=== PATIENT | female | born 1965 | race Caucasian/White ===

== ENCOUNTER → 2017-09-19 16:50 | Outpatient (CLI) | payer BC, SELFPAY ==
[2017-09-19 18:05] LABS: Free T3 2.1 pg/mL (2.18-3.98); T4 Total, Thyroxin 8.3 ug/dL (4.8-13.9); Thyroid Stim Hormone (TSH) 2.34 uIU/mL (0.358-3.74)
== END ==
PROVIDERS: Family Provider Family Medicine; PCP Family Medicine; Visit Provider Family Medicine
DX: E03.9 Hypothyroidism, unspecified (principal)
CPT/HCPCS: 36415; 84436; 84443; 84481

== ENCOUNTER → 2018-02-24 09:56 | Outpatient (CLI) | payer BC, SELFPAY ==
[2018-02-24 13:00] LABS: Anion Gap 9 (5-15); BUN 21 mg/dL (7-18); BUN/Creat Ratio 23.3 RATIO (10-20); Calcium,Total 8.5 mg/dL (8.5-10.1); Chloride 106 mmol/L (98-107); Cholesterol 173 mg/dL (200); EST Glomerular Filtration Rate 70 mL/min (>60); Est Glom Filt Rate - Afr Amer 84 mL/min (>60); Glucose 108 mg/dL (74-106); High Density Lipoprotein 68 mg/dL; Potassium 4.5 mmol/L (3.5-5.1); Sodium Level 140 mmol/L (136-145); Triglycerides 102 mg/dL; Very Low Density Lipoprotein 20 mg/dL (5-40); Vitamin D,25 Hydroxy 46.7 ng/mL (29.95-100.01)
== END ==
PROVIDERS: Family Provider Family Medicine; PCP Family Medicine; Visit Provider Family Medicine
DX: Z00.00 Encounter for general adult medical examination without abnormal findings (principal)
CPT/HCPCS: 36415; 80048; 80061; 82306; 84443

== ENCOUNTER → 2018-03-11 07:17 | Outpatient (CLI) | payer BC, SELFPAY | PROVIDERS: Family Provider Family Medicine; PCP Family Medicine; Visit Provider Family Medicine | DX: Z12.31 Encounter for screening mammogram for malignant neoplasm of breast (principal) | CPT/HCPCS: 77063; 77067 ==

== ENCOUNTER → 2018-08-27 08:23 | Outpatient (CLI) | payer BC, SELFPAY ==
[2018-08-27 10:53] LABS: Anion Gap 6 (5-15); BUN 16 mg/dL (7-18); BUN/Creat Ratio 19.6 RATIO (10-20); Calcium,Total 8.9 mg/dL (8.5-10.1); Chloride 107 mmol/L (98-107); Creatinine, Serum 0.82 mg/dL (0.55-1.02); EST Glomerular Filtration Rate 78 mL/min (>60); Est Glom Filt Rate - Afr Amer 94 mL/min (>60); Free T3 2.4 pg/mL (2.18-3.98); Glucose 105 mg/dL (74-106); Potassium 4.1 mmol/L (3.5-5.1); Sodium Level 139 mmol/L (136-145); T4 Total, Thyroxin 10.4 ug/dL (4.8-13.9); Thyroid Stim Hormone (TSH) 2.09 uIU/mL (0.358-3.74)
== END ==
PROVIDERS: Family Provider Family Medicine; PCP Family Medicine; Referring Provider Family Medicine; Visit Provider Family Medicine
DX: E03.9 Hypothyroidism, unspecified (principal); F32.9 Major depressive disorder, single episode, unspecified
CPT/HCPCS: 36415; 80048; 84436; 84443; 84481

== ENCOUNTER → 2019-02-28 07:01 | Outpatient (CLI) | payer BC, SELFPAY ==
[2019-02-28 08:13] LABS: Anion Gap 7 (5-15); BUN 16 mg/dL (7-18); BUN/Creat Ratio 19.4 RATIO (10-20); Calcium,Total 8.5 mg/dL (8.5-10.1); Chloride 107 mmol/L (98-107); Cholesterol 186 mg/dL (200); Creatinine, Serum 0.82 mg/dL (0.55-1.02); EST Glomerular Filtration Rate 77 mL/min (>60); Est Glom Filt Rate - Afr Amer 93 mL/min (>60); Glucose 92 mg/dL (74-106); High Density Lipoprotein 68 mg/dL; Potassium 3.9 mmol/L (3.5-5.1); Sodium Level 140 mmol/L (136-145); Thyroid Stim Hormone (TSH) 3.22 uIU/mL (0.358-3.74); Triglycerides 88 mg/dL; Very Low Density Lipoprotein 18 mg/dL (5-40)
[2019-02-28 13:46] LABS: Vitamin D,25 Hydroxy 47.7 ng/mL (29.95-100.01)
== END ==
PROVIDERS: Family Provider Family Medicine; PCP Family Medicine; Referring Provider Family Medicine; Visit Provider Family Medicine
DX: Z00.00 Encounter for general adult medical examination without abnormal findings (principal); E55.9 Vitamin D deficiency, unspecified
CPT/HCPCS: 36415; 80048; 80061; 82306; 84443

== ENCOUNTER → 2019-03-12 07:35 | Outpatient (CLI) | payer BC, SELFPAY ==
--- NOTE | 2019-03-12 07:40 | BI_ITS ---
MAMMOGRAPHY - BILATERAL SCREENING REASON FOR EXAM: Female, 53 years old. Routine annual screening examination. PERTINENT HISTORY: Non-contributory. TECHNIQUE: Digital bilateral breast surjit (3D mammographic acquisition) in the CC and MLO projections. 2-D mediolateral oblique (MLO) and craniocaudad (CC) views of both breasts were obtained. CAD: Full Field Digital Mammography with Computer Added Detection was performed. COMPARISON: Comparison is made with prior study dated March 11, 2018 and September 14, 2014. FINDINGS: Breast Composition: There are scattered areas of fibroglandular density. There are no dominant masses or suspicious calcifications. Stable small bilateral axillary lymph nodes. No other significant abnormalities are identified. There has been no significant change since the prior study. BI/SCREEN MAMM (CAD) W/SURJIT BILAT IMPRESSION: Stable bilateral screening mammogram. Yearly follow-up mammogram recommended. (A) ASSESSMENT CATEGORY: BIRADS Category 2: Benign. A letter regarding these results will be sent to the patient by the facility within 30 days. Approximately 10% of breast cancers are not detected by mammography. A normal mammogram should not delay biopsy of a clinically suspicious abnormality. [id number] Electronically Signed: Adalberto See, at 9:09 EDT , Service support ,
== END ==
PROVIDERS: Family Provider Family Medicine; PCP Family Medicine; Referring Provider Family Medicine; Visit Provider Family Medicine
DX: Z12.31 Encounter for screening mammogram for malignant neoplasm of breast (principal)
CPT/HCPCS: 77063; 77067

== ENCOUNTER → 2019-08-27 09:39 | Outpatient (CLI) | payer BC, SELFPAY ==
[2019-08-27 12:46] LABS: Free T3 2.4 pg/mL (2.18-3.98); T4 Total, Thyroxin 9.3 ug/dL (4.8-13.9); Thyroid Stim Hormone (TSH) 1.27 uIU/mL (0.358-3.74)
== END ==
PROVIDERS: PCP Family Medicine; Referring Provider Family Medicine; Visit Provider Family Medicine
DX: E03.9 Hypothyroidism, unspecified (principal)
CPT/HCPCS: 36415; 84436; 84443; 84481

== ENCOUNTER → 2020-03-21 16:38 | Outpatient (CLI) | payer BC, SELFPAY ==
[2020-03-21 18:35] LABS: Anion Gap 4 (5-15); BUN 11 mg/dL (7-18); Calcium,Total 8.2 mg/dL (8.5-10.1); Chloride 110 mmol/L (98-107); Cholesterol 154 mg/dL (200); Creatinine, Serum 0.73 mg/dL (0.55-1.02); EST Glomerular Filtration Rate 88 mL/min (>60); Est Glom Filt Rate - Afr Amer 106 mL/min (>60); Glucose 88 mg/dL (74-106); High Density Lipoprotein 65 mg/dL; Potassium 3.7 mmol/L (3.5-5.1); Sodium Level 140 mmol/L (136-145); Thyroid Stim Hormone (TSH) 1.07 uIU/mL (0.358-3.74); Triglycerides 55 mg/dL; Very Low Density Lipoprotein 11 mg/dL (5-40)
== END ==
PROVIDERS: PCP Family Medicine; Referring Provider Family Medicine; Visit Provider Family Medicine
DX: Z00.00 Encounter for general adult medical examination without abnormal findings (principal); E03.9 Hypothyroidism, unspecified
CPT/HCPCS: 36415; 80048; 80061; 84443

== ENCOUNTER → 2020-04-12 07:03 | Outpatient (CLI) | payer BC, SELFPAY ==
--- NOTE | 2020-04-12 07:04 | BI_ITS ---
MAMMOGRAPHY - BILATERAL SCREENING REASON FOR EXAM: Female, 54 years old. Routine annual screening examination. PERTINENT HISTORY: Non-contributory. TECHNIQUE: Digital bilateral breast surjit (3D mammographic acquisition) in the CC and MLO projections. 2-D mediolateral oblique (MLO) and craniocaudad (CC) views of both breasts were obtained. CAD: Full Field Digital Mammography with Computer Added Detection was performed. COMPARISON: Comparison is made with prior study dated 03/12/2019 and 03/11/2018. FINDINGS: Breast Composition: There are scattered areas of fibroglandular density. There are no dominant masses or suspicious calcifications. No other significant abnormalities are identified. There has been no significant change since the prior study. BI/SCREEN MAMM (CAD) W/SURJIT BILAT IMPRESSION: Stable bilateral screening mammogram. Yearly follow-up mammogram recommended. (A) ASSESSMENT CATEGORY: BIRADS Category 1: Negative. A letter regarding these results will be sent to the patient by the facility within 30 days. Approximately 10% of breast cancers are not detected by mammography. A normal mammogram should not delay biopsy of a clinically suspicious abnormality. [id number] Electronically Signed: Adalberto See, at 8:31 EDT , Service support ,
== END ==
PROVIDERS: PCP Family Medicine; Referring Provider Family Medicine; Visit Provider Family Medicine
DX: Z12.31 Encounter for screening mammogram for malignant neoplasm of breast (principal)
CPT/HCPCS: 77063; 77067

== ENCOUNTER 2020-05-16 05:43 | Day surgery (SDC) | payer BC, SELFPAY ==
[2020-05-04 15:13] VITALS: BMI 22.9
--- NOTE | 2020-05-16 | HEM_PTH ---
PATIENT: ROBIN WELLS [place] [facility] [place][id number] AGE/SX: 54/F ROOM: RE05/16/[address]: Dr. Vinod Hernández MD : 1965 BED: DIS: 05/16/2020 SPEC #: [id number] RECD: 05/16/20 09:25 STATUS: ZANA POP #: [id number] NATO: 05/16/20 00:[address]: Vinod Hernández DEPT: SURGICAL PATHOLOGY RECD BY: Edvin Cadet ENTERED: 05/16/20 13:24 SP TYPE: HEMORRHOID OTHR DR: Dr. Ermias Bartlett MD Tissues: HEMORRHOIDS Procedures: Surgery Specimen Level III HEADER OPERATION: Hemorrhoidectomy PRE-OP DIAGNOSIS: Residual hemorrhoidal skin tags TISSUE SUBMITTED: Internal and external hemorrhoids MICROSCOPIC DIAGNOSIS Internal and external hemorrhoids, hemorrhoidectomy: Fragments of anorectal mucosa with dilated and congested blood vessels, consistent with hemorrhoids. SJ:catalina 05/17/20 MICROSCOPIC DESCRIPTION Slides are reviewed. GROSS DESCRIPTION Received in fixative is one container labeled with the patient's name and designated internal and external hemorrhoids. The specimen consists of five variable sized pieces of saleem mucosal tissue measuring in aggregate 3.8 x 2 x 1.2 cm. Sections reveal hemorrhagic cut surfaces. Health Services Rn sections are submitted in one cassette. / DIANNE:catalina 05/16/20 TC:5 CPT: 23504
--- NOTE | 2020-05-16 05:55 | HP.PCM_ITS ---
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 Is patient in pain?: No Allergies No Known Allergies Allergy (Verified 05/04/20 15:14) Medications ascorbic acid (vitamin C) 500 mg capsule mg PO 05/04/20 [History Confirmed 05/04/20] bupropion HCl 300 mg 24 hr tablet, extended release 300 mg PO ONCE tab 05/04/20 [History Confirmed 05/04/20] dextrin 3 gram/3.5 gram oral powder 3 g PO DAILY 05/04/20 [History Confirmed 05/04/20] levothyroxine 100 mcg tablet 100 mcg PO DAILY tab 05/04/20 [History Confirmed 05/04/20] omega-3 fatty acids 1,000 mg capsule 1,000 mg PO DAILY 05/04/20 [History Confir med 05/04/20] PFSH Medical History Thyroid disease (Acute) External hemorrhoids (Acute) Surgical History Hx of colonoscopy (Acute) Hx of hysterectomy (Acute) Family History Father Thyroid disorder Arthritis Brother Diabetes Thyroid disorder Sister Thyroid disorder Mother Autoimmune disease Social History (Updated 05/04/20 @ 15:[address] Vinod Hernández MD) Smoking Status: Former smoker alcohol intake: current alcohol intake frequency: a few times a week Alcohol type: wine substance use type: does not use caffeine: Yes what type of physical activity do you participate in: none HPI HPI HPI: ROBIN WELLS, is a 54 F who presents to the office today for surgical consultation regarding symptomatic hemorrhoids. Patient is referred by Dr. Ermias Bartlett a written compromise surgical consult recommendations will return to him. The patient states that she has had hemorrhoid problems for multiple years. A couple years previously she had increased bleeding. She saw Dr. Christianson at [facility] and she said that she had 6 infrared treatments for the internal hemorrhoids. She states that improve the bleeding problems but did nothing for the external hemorrhoidal disease. She states that her external hemorrhoids become very inflamed if she uses toilet paper. She has a bidet at home. That facilitates her treatment. She recently went on vacation. She had to use toilet paper. That cause significant irritation of distress. From her previous colorectal treatment she has been placed on a daily fiber supplementation special make sure that Dr. Harrington provides. She eats a good quality high-fiber diet. Only significant medical problem is chronic anxiety The patient's most recent colonoscopy was May 09, [address] Zander Matias. Those findings suggested diverticulosis of the sigmoid colon. No other acute findings. Follow-up exam at 10 years recommended. HPI HPI HPI: ROBIN WELLS, is a 54 F who presents to the office today for ROS General General: No weight change, appetite, fatigue, colon cancer, breast cancer or weakness HEENT HEENT: No difficulty swallowing, eye injury, eye surgery, swollen glands or hoarseness Endo Endocrine: Yes thyroid disease; no diabetes mellitus, thyroid cancer, Hair loss, heat intolerance or cold intolerance Skin Skin: No rash or changing moles Musc Musculoskeletal: No back problems, arthritis, rheumatoid arthritis, gout or joint pain Cardio Cardiovascular: No murmur, pacemaker, heart disease, atrial fibrillation, high blood pressure, heart attack, heart stent, palpitations, shortness of breat with exertion or chest pain Psych Psychiatric: No depression, anxiety or hearing voices Resp Respiratory: No shortness of breath, No sleep apnea, No cough, No COPD, No asthma, No emphysema, No wheezing Gastro Gastrointestinal: No abdominal pain, No nausea or vomiting, No diarrhea, No constipation, No blood in stool, No acid reflux, Yes hemorrhoids, No ulcers, No gallbladder problem, No black,tarry stools Morris Hematologic: No blood thinners, No blood disorders, No bleeding, No anemia, No blood clots Neuro Neurologic: No weakness Exam Const General: cooperative, healthy appearing, comfortable, no acute distress HENMT Head: normal to inspection Eyes General: appearance normal, both eyes and all related structures Resp Effort & Inspection: normal respiratory effort Auscultation: clear to auscultation bilaterally Cardio Rate: regular rate Rhythm: regular rhythm Heart Sounds: no murmurs GI Palpation: soft, no hepatosplenomegaly Auscultation: normal bowel sounds Other: External hemorrhoidal tissue prominent. Normal anal tone. More mild internal hemorrhoidal disease. Slightly uncomfortable with digital exam. Surgical neuropsychiatrist present Skin General: no rashes or lesions noted Neuro Cognition: normal cognition Extrem General: no calf tenderness Psych Affect: normal affect Assessment & Plan 1. Residual hemorrhoidal skin tags K64.4 Plan 54-year-old female with a combination of internal and external hemorrhoids. She is very irritated by the external component. They periodically get inflamed particularly with use of toilet paper. She is already doing maximal conservative measures with a daily fiber supplement as well as high-fiber diet and ideal body weight. I have offered her surgical hemorrhoidectomy. Great care will be taken to avoid injury to the sphincter mechanism. In anticipation for removal of internal and as much of the external component will be pursued as feasible. She is aware of the technique, benefit, risk of alternatives. She is aware that there is a possibility of some residual external tags. She has had an opportunity ask and have questions answered. We will schedule and proceed at her discretion. Copy: Dr. Ermias Hernández M.D., F.A.C.S. Coding Level of Care Code 18136 Diagnoses Residual hemorrhoidal skin tags K64.4 ??Hemorrhoid type: residual hemorrhoidal skin tags I have re-examined the patient. There are no clinical changes since date of exam. Procedure Criteria Procedure Type: Elective COVID Risk Discussion: The surgeon/proceduralist and patient have discussed in detail the risk of exposure to and/or potential harm posed by the COVID-19 virus with having a surgery/procedure at this time versus the risk of delaying the surgery/procedure. It is not possible to know either the risk of delaying the surgery or procedure or chance of getting an infection with perfect accuracy, but a joint decision was made between the patient and the surgeon/proceduralist to proceed at this time with the scheduled surgery/procedure as indicated on the consent form.
--- NOTE | 2020-05-16 05:56 | EKG12_ITS ---
Test Reason : PRE-OP EKG Blood Pressure : / mmHG Vent. Rate : 066 BPM Atrial Rate : 066 BPM P-R Int : 146 ms QRS Dur : 084 ms QT Int : 420 ms P-R-T Axes : 014 011 043 degrees QTc Int : 440 ms Normal sinus rhythm Normal ECG Confirmed by QIANA ONEAL, LANE ([id number]), assignment desk editor TIM BECERRA ([id number]) on 05/17/2020 8:27:13 AM Referred By: Vinod Hernández Confirmed By:LANE KIRAN MD
[2020-05-16 06:22] VITALS: BP 135/76; PULSE 71; RESP 18; TEMP 36.8; O2SAT 100; BMI 24.0
[2020-05-16 06:25] LABS: Hematocrit 40.5 % (37-47); Hemoglobin 13.1 g/dL (12.0-15.0); Mean Corp Hgb Conc 32.3 g/dL (32-36); Mean Platelet Vol. 10.4 fl (6.2-12.0); Platelet Count 258 K/mm3 (150-450); RBC Distribution Width CV 12.7 % (11.6-14.6); RBC Distribution Width SD 44.9 fl (35.1-43.9); Red Blood Count 4.22 M/mm3 (4.2-5.4); White Blood Count 5.7 K/mm3 (4.4-11.0)
[2020-05-16] MEDS: Lactated Ringers 1,000 ML 100 ML IV ×2 (06:30→09:02)
[2020-05-16 06:49] LABS: Anion Gap 7 (5-15); BUN 13 mg/dL (7-18); BUN/Creat Ratio 13.9 RATIO (10-20); Calcium,Total 8.5 mg/dL (8.5-10.1); Chloride 106 mmol/L (98-107); Creatinine, Serum 0.93 mg/dL (0.55-1.02); EST Glomerular Filtration Rate 67 mL/min (>60); Est Glom Filt Rate - Afr Amer 80 mL/min (>60); Estimated Creatinine Clearance 67.25 ml/min; Glucose 124 mg/dL (74-106); Potassium 3.9 mmol/L (3.5-5.1); Sodium Level 139 mmol/L (136-145)
[2020-05-16] MEDS: Cefotetan 2 GM in 0.9% NS 100 ML IV (07:34)
--- NOTE | 2020-05-16 07:44 | DCINST_ITS ---
Discharge Diet: No Restrictions Discharge Activity: Return to Normal Activity, May Not Drive - while you are taking narcotic pain medications. Do not drive, work with heavy equipment or sign legal documents for 24 hours after your surgery. Allergies/Adverse Reactions: Allergies No Known Allergies Allergy (Verified 05/16/20 06:17) Medications to take at Discharge ascorbic acid (vitamin C) 500 mg capsule 1,000 mg PO QHS 05/04/20 bupropion HCl 300 mg 24 hr tablet, extended release 300 mg PO QHS tab 05/04/20 levothyroxine 100 mcg tablet 100 mcg PO DAILY tab 05/04/20 omega-3 fatty acids 1,000 mg capsule 1,000 mg PO DAILY 05/04/20 Acetylcysteine [Nac] 1,000 mg PO QHS 05/06/20 Biotin 10,000 mcg PO DAILY 05/06/20 Calcium Carbonate/Vitamin D3 [Calcium 600 + Vit D Caplet] 1 ea PO QHS 05/06/20 Lactobacillus Acidophilus [Probiotic Acidophilus] 1 ea PO DAILY 05/06/20 Magnesium Oxide [Magnesium] 400 mg PO QHS 05/06/20 Potassium (Otc) [Potassium Otc] 99 mg PO QHS 05/06/20 Loraine's Wort 1,500 mg PO DAILY 05/06/20 Vitamin B Complex 1 ea PO DAILY 05/06/20 Primary Care Physician: Ermias Bartlett MD [Primary Care Provider] - Test Results: Test results from this visit will be discussed in further detail at your follow- up appointment, if applicable. Please Follow Up With: Vinod Hernández MD - [phone] When: Plan to have a follow up approximately 3 weeks after surgery.
[2020-05-16] MEDS: Lubricating Jelly 60 GM Tube 30 GM TOPICAL (08:00)
[2020-05-16] MEDS: Dibucaine 30 GM Tube 1 APPLIC (08:35)
--- NOTE | 2020-05-16 08:41 | OP.PCM_ITS ---
Problem List (1) Hemorrhoids Status: Acute Qualifiers: (2) External hemorrhoids Status: Acute Report of Operation Date of Procedure: 05/16/20 Pre-Operative Diagnosis: Symptomatic internal and external hemorrhoids Post-Operative Diagnosis: Same Surgery/Procedure Performed:: Multiple segment surgical hemorrhoidectomy Description of Surgical Findings:: Timeout informed consent was obtained. 54-year-old female was taken to the operating room underwent general endotracheal ovation esthesia was placed prone jackknife on the table received 2 g of cefotetan and perianal area was sterilely prepped and draped inspection revealed external hemorrhoidal tags right laterally anteriorly and left laterally. Speculum was inserted. Apical sutures of 2-0 chromic placed. The external skin was sharply incised and a scalpel was used to excise the external and internal components. The mucosa was approximated a running locking 2-0 chromic. 3 separate wedges were obtained right lateral right anterior lateral and left lateral. An additional portion of excess skin was excised posteriorly. Good removal was achieved. [place] to be good approximation of tissue. The perianal tissue was then anesthetized with 30 cc cc of 0.5% Marcaine mixed with 20 cc of Exparel. Dibucaine ointment with Vaseline gauze was inserted followed by dry cover dressing. Sponge and instrument and needle counts were reported to surgically correct. Blood loss was minimal. Specimens internal/external hemorrhoids. Drains none. Blood loss minimal. The patient was taken to recovery area inside of condition without apparent complication Vinod Hernández M.D., F.A.C.S. Type of Anesthesia:: General Anesthesiologist: Michael Jackson
[2020-05-16] MEDS: BUPIVACAINE LIPOSOME/PF 20 ML VIAL OPERA.SITE (08:45)
[2020-05-16] MEDS: Bupivacaine Mpf 0.5% 30 ML VIAL (08:45)
[2020-05-16 08:50] VITALS: BP 135/76; BP 147/72; PULSE 90; RESP 16; TEMP 36.6; O2SAT 100
[2020-05-16 09:00] VITALS: BP 135/76; BP 93/81; PULSE 72; RESP 16; O2SAT 100
[2020-05-16 09:15] VITALS: BP 135/76; BP 99/84; PULSE 62; RESP 16; O2SAT 100
[2020-05-16 09:31] VITALS: BP 117/90; BP 135/76; PULSE 68; RESP 16; TEMP 36.2; O2SAT 100
[2020-05-16 10:57] VITALS: BP 122/80; BP 135/76; PULSE 64; RESP 16; TEMP 36.9; O2SAT 100
== END 2020-05-16 11:01 | disposition home or self-care (01) ==
LOC: SDC 05:44 → AC 05:46
PROVIDERS: Anesthesiology; PCP Family Medicine; Referring Provider Surgery; Visit Provider Surgery
PROC: (CPT 46260; principal; 2020-05-16 07:15)
DX: K64.8 Other hemorrhoids (principal); Z20.828 Contact with and (suspected) exposure to other viral communicable diseases; K64.4 Residual hemorrhoidal skin tags; E07.9 Disorder of thyroid, unspecified; Z79.899 Other long term (current) drug therapy; Z87.891 Personal history of nicotine dependence; F41.9 Anxiety disorder, unspecified
CPT/HCPCS: 00902; 46260; 80048; 85027; 87635; 88304; 93005; C9803; J7120; J2405; U0003

== ENCOUNTER → 2020-09-19 08:43 | Outpatient (CLI) | payer BC, SELFPAY ==
[2020-09-15 09:11] VITALS: BMI 26.4
--- NOTE | 2020-09-19 08:47 | RAD_ITS ---
STUDY: X-RAY - LEFT SHOULDER REASON FOR EXAM: Female, 54 years old. Left shoulder pain, no injury TECHNIQUE: 4 view(s) of the shoulder. COMPARISON: None. FINDINGS: Normal glenohumeral articulation. Normal acromioclavicular joint. Normal acromion. Normal humeral head and visualized proximal humerus. The soft tissue structures are unremarkable. Normal visualized pulmonary apex. RAD/Shoulder min 2 Views IMPRESSION: Normal x-ray examination of the shoulder. Electronically Signed: Adalberto See MD at 15:12 EST , Service support ,
[2020-09-19 11:02] LABS: Anion Gap 4 (5-15); BUN 25 mg/dL (7-18); BUN/Creat Ratio 22.9 RATIO (10-20); Calcium,Total 8.5 mg/dL (8.5-10.1); Chloride 107 mmol/L (98-107); Cholesterol 205 mg/dL (200); Creatinine, Serum 1.09 mg/dL (0.55-1.02); EST Glomerular Filtration Rate 55 mL/min (>60); Est Glom Filt Rate - Afr Amer 67 mL/min (>60); Free T3 2.1 pg/mL (2.18-3.98); Glucose 104 mg/dL (74-106); High Density Lipoprotein 79 mg/dL; Potassium 3.9 mmol/L (3.5-5.1); Sodium Level 138 mmol/L (136-145); T4 Free Direct 0.95 ng/dL (0.76-1.46); Thyroid Stim Hormone (TSH) 1.47 uIU/mL (0.358-3.74); Triglycerides 124 mg/dL; Very Low Density Lipoprotein 25 mg/dL (5-40)
== END ==
PROVIDERS: PCP Family Medicine; Referring Provider Family Medicine; Visit Provider Family Medicine
DX: Z00.00 Encounter for general adult medical examination without abnormal findings (principal); E03.9 Hypothyroidism, unspecified; M25.519 Pain in unspecified shoulder
CPT/HCPCS: 36415; 73030; 80048; 80061; 84439; 84443; 84481

== ENCOUNTER 2020-10-20 10:00 | Outpatient (RCR) | payer BC, SELFPAY ==
[2020-09-15 09:11] VITALS: BMI 26.4
--- NOTE | 2020-09-26 12:49 | HP.PTEVAL_ITS ---
Patient's Visit Information ROBIN WELLS is a 54 year old F referred to Physical Therapy by Dr. Ermias Bartlett MD with a diagnosis of LEFT SHOULDER PAIN. Date of Evaluation: 09/26/20 Physical Therapist: Don Quevedo, PT, Cert MDT, OCS - Visit Plan Frequency: 2x /Week Duration: 4 Weeks Plan: PT INTERVENTIONS WITH MODALTIES ,POSTURAL EX'S,RTC/SCAPULAR STRENGTHENING,,MANUAL THERAPY - Subjective This 54 y/o female presents to physical therapy with left shoulder pain . Patient stated in 2019 lifting [employer] tree and heard a pop. Symptoms have been getting worse. Patient had x-rays -. Aggraveting factors lifting OH activies ,reaching behind back for dressing ,lifting . Alleviating factrs none. Patient is unable to lay on left side .Denies parathesia/tingling. Patient symptoms described as throbbing. Patient pain affects sleeping. Patient symptoms affects ADL's,housework tasks .Patient symptoms affects QOL. SOCIAL: . 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 NEURO: denies parathesia/tingling,reflexes C5-6-7 2/3. AROM SHOULDER : flexion 110 degrees pain,abduction 110 degrees pain eccentric ,ER 85 degrees,IR L2. MMT: RTC 4/5 ,except supraspinatous 4-/5 slight pain ,deltoid anterior 4-/5,lateral 3+/5 slight pain,MT 3/4,LT 3-/5. G-H SCAPULAR : 1:1 RATIO. CAPSULAR RESTRICTION: mild tight - Special Tests C/S Radiculapathy - Left Upper limb tension test: Negative C/S Radiculapathy - Right Upper limb tension test: Negative C/S Radiculapathy - Left Spurlings: Negative C/S Radiculapathy - Right Spurlings: Negative C/S Radiculapathy - Left Cervical distraction: Negative C/S Radiculapathy - Right Cervical distraction: Negative Sharp Cb: Negative Vertebral Artery Test: Negative Alar Ligament Test: Negative R Shoulder External Rotation Lag Test - RC Tear: Negative R Shoulder Supine Impingement Test - RC Tear: Negative R Shoulder Lift Off Test - Subscapular Tear: Negative R Shoulder Drop Sign - IS Test: Negative R Shoulder Empty Can - SS: Positive R Shoulder Belly Press - SupScap: Negative R Shoulder Neer - Impingement: Positive R Shoulder Garcia Eldon - Impingement: Positive - Goals Goal 1:: I with HEP. Goal Time Frame: 4-6 Weeks Goal 2:: Patient to decrease left shoulder pain by 50% or > to improve QOL and function Goal Time Frame: 4-6 Weeks Goal 3:: Patient increase left shoulder ROM symmtrical left comapred to left to improve function with OH activities Goal Time Frame: 4-6 Weeks Goal 4:: Patient increase left shoulder rtc 4+/5 and deltoid 4/f to improve function with OH and functional tasks aboce 90 degrees. Goal Time Frame: 4-6 Weeks Goal 5:: Patient increase shoulder owestry score by 5 points or > to improve QOL. Goal Time Frame: 4-6 Weeks - Rehabilitation Potential Physical Therapy Diagnosis: This patient has left shoulder pain with possible RTC involvement possible tendonesis with pain,weakness ,decrease ROM affects thus will benifit from skilled PT Rehabilitation Potential: Good - Anticipated Interventions Patient/Client Instruction: Educate patient on: Condition, Plan of Care For the Purpose of:: To decrease pain, To increase ROM, To improve nutrient delivery to tissue, To increase oxygenation perfusion, To improve muscle perform ance and motor function, To increase tolerance to activity/condition/position, To improve ability of physical actions for home/community/work/leisure, To improve health of tissue, To decrease soft tissue restriction, To increase flexibility/ROM, To reduce risk of recurrence, To improve ability to perform tasks related to life management Therapeutic Exercise to Include: Strength training, Postural training, Flexibilty training, Active ROM, Scapular Strength/Stabilization Comment: RTC For the Purpose of:: To decrease pain, To increase ROM, To improve nutrient delivery to tissue, To increase oxygenation perfusion, To improve muscle performance and motor function, To improve ability of physical actions for home/community/work/leisure, To improve health of tissue, To decrease soft tissue restriction, To increase flexibility/ROM, To reduce risk of recurrence, To improve ability to perform tasks related to life management Manual Therapy Techniques to Include: Mobilization Comment: G-H For the Purpose of:: To decrease pain, To increase ROM, To improve health of tissue, To decrease soft tissue restriction TENS: Yes IF ES: Yes Cryotherapy (ice pack, ice massage): Yes Thermo therapy (hot pack): Yes Ultrasound (thermal/non thermal): Yes For the Purpose of:: To decrease pain, To increase ROM, To improve nutrient delivery to tissue, To increase oxygenation perfusion, To improve health of tissue, To decrease soft tissue restriction Thank you for the opportunity to evaluate your patient. For Medicare and Medicare HMO plans, please review the plan of care and approve it. It will need to be FAXED BACK to us at [phone] for Medicare purposes. For Medicare only, by signing this I certify the plan of care. Please let me know if there are questions or concerns regarding this plan of care. Physician Signature: ____Date:
--- NOTE | 2020-10-20 10:28 | HP.PTDCSUM ---
It has been my pleasure to treat ROBIN WELLS referred by Dr. Ermias Bartlett MD, with the diagnosis of LEFT SHOULDER PAIN for a total of 8 visit(s). Discharge Date: 10/20/20 Please see the following information for a summary of their discharge status. Subjective: Can do ex's at home ready for d/c Left Shoulder Pain Intensity (Out of 10): 2 % Improvement: 75 Objective/Function: AROM : SHOULDER FLEXION 140 DEGRRES,ABD 140 ,ER 90 ERP,IR L3. MMT: RTC 4/5 ,DELTOID 4/5 .LATERAL 4-/5 MILD PAIN Goal 1:: I with HEP. Goal Progress: Goal Met Goal 2:: Patient to decrease left shoulder pain by 50% or > to improve QOL and function Goal Progress: Goal Met Goal 3:: Patient increase left shoulder ROM symmtrical left comapred to left to improve function with OH activities Goal Progress: Goal Met Goal 4:: Patient increase left shoulder rtc 4+/5 and deltoid 4/f to improve function with OH and functional tasks aboce 90 degrees. Goal Progress: Goal Met Goal 5:: Patient increase shoulder owestry score by 5 points or > to improve QOL. Goal Progress: Goal Met Plan: d/c Discharge Comments: HEP If there are questions or concerns regarding this patient's physical therapy, please feel free to call me at [phone]. Thank you for the referral of this patient. Sincerely, Don Quevedo, PT, Cert MDT, OCS
== END 2020-10-20 10:52 | disposition home or self-care (01) ==
LOC: PT 10:00
PROVIDERS: PCP Family Medicine; Referring Provider Family Medicine; Visit Provider Family Medicine
DX: M25.512 Pain in left shoulder (principal)
CPT/HCPCS: 97014; 97110; 97161; G0283

== ENCOUNTER → 2021-03-20 08:31 | Outpatient (CLI) | payer BC, SELFPAY ==
[2021-03-20 10:53] LABS: Free T3 2.3 pg/mL (2.18-3.98); T4 Free Direct 0.98 ng/dL (0.76-1.46); Thyroid Stim Hormone (TSH) 1.18 uIU/mL (0.358-3.74)
== END ==
PROVIDERS: PCP Family Medicine; Referring Provider Family Medicine; Visit Provider Family Medicine
DX: E03.9 Hypothyroidism, unspecified (principal)
CPT/HCPCS: 36415; 84439; 84443; 84481

== ENCOUNTER 2021-09-18 09:53 | Outpatient (CLI) | payer OTHER, SELFPAY ==
[2021-09-18 12:40] LABS: Anion Gap 4 (5-15); BUN 13 mg/dL (7-18); BUN/Creat Ratio 16.9 RATIO (10-20); Calcium,Total 8.6 mg/dL (8.5-10.1); Chloride 108 mmol/L (98-107); Cholesterol 181 mg/dL (200); Creatinine, Serum 0.77 mg/dL (0.55-1.02); EST Glomerular Filtration Rate 83 mL/min (>60); Est Glom Filt Rate - Afr Amer 100 mL/min (>60); Free T3 2.3 pg/mL (2.18-3.98); Glucose 107 mg/dL (74-106); High Density Lipoprotein 61 mg/dL; Potassium 3.9 mmol/L (3.5-5.1); Sodium Level 139 mmol/L (136-145); T4 Free Direct 1.22 ng/dL (0.76-1.46); Thyroid Stim Hormone (TSH) 0.14 uIU/mL (0.358-3.74); Triglycerides 100 mg/dL; Very Low Density Lipoprotein 20 mg/dL (5-40)
== END 2021-09-18 23:59 | disposition home or self-care (01) ==
LOC: MFPLAB 09:55
PROVIDERS: PCP Family Medicine; Visit Provider Family Medicine
DX: Z00.00 Encounter for general adult medical examination without abnormal findings (principal); E03.9 Hypothyroidism, unspecified
CPT/HCPCS: 36415; 80048; 80061; 84439; 84443; 84481

== ENCOUNTER → 2021-12-19 | Outpatient (CLI) | payer OTHER, SELFPAY ==
--- NOTE | 2021-12-19 08:00 | BI_ITS ---
MAMMOGRAPHY - BILATERAL SCREENING REASON FOR EXAM: Female, 56 years old. Routine annual screening examination. PERTINENT HISTORY: Non-contributory. TECHNIQUE: Digital bilateral breast surjit (3D mammographic acquisition) in the CC and MLO projections. 2-D mediolateral oblique (MLO) and craniocaudad (CC) views of both breasts were obtained. CAD: Full Field Digital Mammography with Computer Added Detection was performed. COMPARISON: Screening mammogram from 04/12/2020, 03/12/2019, 03/11/2018. FINDINGS: Breast Composition: There are scattered areas of fibroglandular density. There are no dominant masses or suspicious calcifications. No other significant abnormalities are identified. There has been no significant change since the prior study. BI/SCRN MAMM (CAD)W/SURJIT BILAT IMPRESSION: Stable bilateral screening mammogram. Yearly follow-up mammogram recommended. (A) ASSESSMENT CATEGORY: BIRADS Category 1: Negative. A letter regarding these results will be sent to the patient by the facility within 30 days. Approximately 10% of breast cancers are not detected by mammography. A normal mammogram should not delay biopsy of a clinically suspicious abnormality. [id number] Electronically Signed: Rian Porter, at 18:15 EDT ,
== END | disposition home or self-care (01) ==
PROVIDERS: PCP Family Medicine; Visit Provider Family Medicine
DX: Z12.31 Encounter for screening mammogram for malignant neoplasm of breast (principal)
CPT/HCPCS: 77063; 77067

== ENCOUNTER → 2022-03-19 | Outpatient (CLI) | payer OTHER, SELFPAY ==
[2022-03-19 10:46] LABS: Anion Gap 4 (5-15); BUN 15 mg/dL (7-18); Calcium,Total 8.8 mg/dL (8.5-10.1); Chloride 108 mmol/L (98-107); Creatinine, Serum 0.79 mg/dL (0.55-1.02); EST Glomerular Filtration Rate 80 mL/min (>60); Est Glom Filt Rate - Afr Amer 97 mL/min (>60); Free T3 2.4 pg/mL (2.18-3.98); Glucose 128 mg/dL (74-106); Potassium 3.8 mmol/L (3.5-5.1); Sodium Level 138 mmol/L (136-145); T4 Free Direct 1.18 ng/dL (0.76-1.46); Thyroid Stim Hormone (TSH) 0.27 uIU/mL (0.358-3.74)
[2022-03-19 14:50] LABS: Hemoglobin A1c 5.2 % (3.8-5.6)
== END | disposition home or self-care (01) ==
LOC: MFPLAB 08:59
PROVIDERS: PCP Family Medicine; Visit Provider Family Medicine
DX: E03.9 Hypothyroidism, unspecified (principal); R73.09 Other abnormal glucose
CPT/HCPCS: 36415; 80048; 83036; 84439; 84443; 84481

== ENCOUNTER → 2022-10-11 | Outpatient (CLI) | payer OTHER, SELFPAY ==
[2022-10-11 13:06] LABS: Free T3 2.2 pg/mL (2.18-3.98); T4 Free Direct 1.16 ng/dL (0.76-1.46); Thyroid Stim Hormone (TSH) 0.81 uIU/mL (0.358-3.74)
== END | disposition home or self-care (01) ==
LOC: MFPLAB 09:54
PROVIDERS: PCP Family Medicine; Referring Provider Family Medicine; Visit Provider Family Medicine
DX: E03.9 Hypothyroidism, unspecified (principal)
CPT/HCPCS: 36415; 84439; 84443; 84481

== ENCOUNTER → 2023-07-02 | Outpatient (CLI) | payer OTHER, SELFPAY ==
--- NOTE | 2023-07-02 07:45 | BI_ITS ---
MAMMOGRAPHY - BILATERAL SCREENING REASON FOR EXAM: Female, 57 years old. Routine annual screening examination. PERTINENT HISTORY: Non-contributory. TECHNIQUE: Digital bilateral breast surjit (3D mammographic acquisition) in the CC and MLO projections. 2-D mediolateral oblique (MLO) and craniocaudad (CC) views of both breasts were obtained. CAD: Full Field Digital Mammography with Computer Added Detection was performed. COMPARISON: Comparison is made with prior study dated December 19, 2021 and April 12, 2020. FINDINGS: Breast Composition: There are scattered areas of fibroglandular density. There is a 5.9 mm x 3.9 mm nodular density seen in the deep upper lateral aspect of the left breast. The patient will be recalled for additional views including 90 degree lateral and compression spot views. No other significant abnormalities are identified. BI/SCRN MAMM (CAD)W/SURJIT BILAT IMPRESSION: 5.9 mm x 3.9 mm nodular density in the deep upper lateral aspect of the left breast as described. The patient will be recalled for additional views including 90 degree lateral and compression spot views in the craniocaudad projection. Recall Side: Left Breast ASSESSMENT CATEGORY: BIRADS Category 0: Incomplete. Need additional imaging evaluation. A letter regarding these results will be sent to the patient by the facility within 30 days. Approximately 10% of breast cancers are not detected by mammography. A normal mammogram should not delay biopsy of a clinically suspicious abnormality. [id number] Electronically Signed: Adalberto See MD at 8:50 EST ,
== END | disposition home or self-care (01) ==
LOC: OPBI 07:45
PROVIDERS: PCP Family Medicine; Referring Provider Nurse Practitioner Women's Health; Visit Provider Nurse Practitioner Women's Health
DX: Z12.31 Encounter for screening mammogram for malignant neoplasm of breast (principal)
CPT/HCPCS: 77063; 77067

== ENCOUNTER → 2023-07-04 | Outpatient (CLI) | payer OTHER, SELFPAY ==
--- NOTE | 2023-07-04 08:56 | BI_ITS ---
MAMMOGRAPHY - UNILATERAL DIAGNOSTIC: LEFT BREAST REASON FOR EXAM: Female, 57 years old. Abnormal screening mammogram. PERTINENT HISTORY: Non-contributory. TECHNIQUE: Compression spot views of the left breast in mediolateral oblique and craniocaudal projections were obtained. CAD: Full Field Digital Mammography with Computer Added Detection was performed. COMPARISON: Comparison is made with prior study dated July 02, 2023. FINDINGS: Breast Composition: There are scattered areas of fibroglandular density. Persistent 5 mm x 5 mm nodular density in the deep upper lateral aspect of the left breast. Correlation with ultrasound is recommended. No other significant abnormalities are identified. BI/DIAG MAMM W/CAD, UNILAT IMPRESSION: Persistent 5 mm x 5 mm nodular density in the deep upper lateral aspect of the left breast. Correlation with ultrasound is recommended. ASSESSMENT CATEGORY: BIRADS Category 0: Incomplete. Need additional imaging evaluation. A letter regarding these results will be sent to the patient by the facility within 30 days. Approximately 10% of breast cancers are not detected by mammography. A normal mammogram should not delay biopsy of a clinically suspicious abnormality. Electronically Signed: Adalberto See MD at 10:25 EST ,
--- NOTE | 2023-07-04 08:56 | US_ITS ---
STUDY: ULTRASOUND BREAST - LEFT REASON FOR EXAM: Female, 57 years old. Abnormal screening mammogram. TECHNIQUE: Axial and longitudinal images of the LEFT breast were performed with a high resolution ultrasound transducer. # OF IMAGES: 25 COMPARISON: Comparison is made with prior mammogram done earlier in the day as well as prior mammogram dated July 02, 2023. FINDINGS: LEFT Breast: The upper-outer quadrant of the left breast was examined with ultrasound. The mammographic abnormality corresponds to a 3 mm x 5 mm x 2 mm cyst at the 4:00 position of the breast at 4 cm from the nipple. US/Breast Limited Unilateral IMPRESSION: The mammographic abnormality corresponds to a 3 mm x 5 mm x 2 mm cyst at the 4:00 position of the breast at 4 cm from the nipple. ASSESSMENT CATEGORY: BIRADS Category 2: Benign. A letter regarding these results will be sent to the patient by the facility within 30 days. Electronically Signed: Adalberto See MD at 10:40 EST ,
== END | disposition home or self-care (01) ==
PROVIDERS: PCP Family Medicine; Referring Provider Nurse Practitioner Women's Health; Visit Provider Nurse Practitioner Women's Health
DX: R92.8 Other abnormal and inconclusive findings on diagnostic imaging of breast (principal)
CPT/HCPCS: 76642; 77065

== ENCOUNTER → 2023-11-13 | Outpatient (CLI) | payer OTHER, SELFPAY ==
[2023-11-13 16:27] LABS: ALB/GLOB Ratio 1.1 RATIO (0.9-2.4); AST(SGOT) 15 U/L (15-37); Alanine Aminotransfer ALT/SGPT 28 U/L (13-56); Albumin, Serum 3.8 g/dL (3.2-5.0); Alkaline Phosphatase 41 U/L (45-117); Anion Gap 8 (5-15); BUN 19 mg/dL (7-18); BUN/Creat Ratio 23.7 RATIO (10-20); Calcium,Total 8.7 mg/dL (8.5-10.1); Chloride 107 mmol/L (98-107); Cholesterol 210 mg/dL (200); EST Glomerular Filtration Rate 78 mL/min (>60); Est Glom Filt Rate - Afr Amer 94 mL/min (>60); Free T3 2.5 pg/mL (2.18-3.98); Globulin 3.4 g/dL (2.2-4.2); Glucose 101 mg/dL (74-106); High Density Lipoprotein 79 mg/dL; Potassium 4.1 mmol/L (3.5-5.1); Protein, Total 7.2 g/dL (6.4-8.2); Sodium Level 139 mmol/L (136-145); T4 Free Direct 1.22 ng/dL (0.76-1.46); Thyroid Stim Hormone (TSH) 0.08 uIU/mL (0.358-3.74); Triglycerides 85 mg/dL; Very Low Density Lipoprotein 17 mg/dL (5-40)
== END | disposition home or self-care (01) ==
LOC: MFPLAB 12:18
PROVIDERS: PCP Family Medicine; Visit Provider Family Medicine
DX: Z00.00 Encounter for general adult medical examination without abnormal findings (principal); E03.9 Hypothyroidism, unspecified; R20.2 Paresthesia of skin
CPT/HCPCS: 36415; 80053; 80061; 84439; 84443; 84481

== ENCOUNTER → 2024-01-29 | Outpatient (CLI) | payer OTHER, SELFPAY ==
--- NOTE | 2024-01-29 14:44 | RAD_ITS ---
STUDY: X-RAY - RIGHT SHOULDER REASON FOR EXAM: Female, 58 years old. Pain. TECHNIQUE: 4 views of the right shoulder. COMPARISON: None. FINDINGS: Normal glenohumeral articulation. There is minimal acromioclavicular arthrosis. Normal acromion. Normal humeral head and visualized proximal humerus. The soft tissue structures are unremarkable. There is no demonstrated fracture. Normal visualized pulmonary apex. RAD/Shoulder min 2 Views IMPRESSION: Minimal acromioclavicular arthrosis. Electronically Signed: Corbin Cantrell MD at 15:59 EDT ,
== END | disposition home or self-care (01) ==
PROVIDERS: PCP Family Medicine; Referring Provider Family Medicine; Visit Provider Family Medicine
DX: M25.511 Pain in right shoulder (principal)
CPT/HCPCS: 73030

== ENCOUNTER 2024-02-24 09:30 | Outpatient (RCR) | payer OTHER, SELFPAY ==
--- NOTE | 2024-02-06 09:14 | HP.PTEVAL ---
Patient's Visit Information Visit Information Visit Information: ROBIN WELLS is a 58 year old F referred to Physical Therapy by Dr. Ermias Bartlett MD with a diagnosis of shoulder pain. Date of Evaluation: 02/06/24 Physical Therapist: SONIDO Enriquez Visit Plan Frequency: 2x /Week Duration: 2 Months Plan: Pt feels that she might have Carpal tunnel (discussed wearing her brace to see if it helps and can help determine if pain is shoulder and carpal tunnel vs neck due to pain all the way down to hand 2X/ week for 8 weeks for R shoulder PROM and AAROM and then progress as able to AROM, scapular strength, RC strength with HEP. Modalities as needed. If pt is not making progress in couple of weeks we may want to check for radicular sx. Subjective Subjective: Pt reports that a few months ago she started with R shoulder pain and the pain just kept getting worse and worse. It feels like throbbing/spasms. Pain can be in the front or the back of her shoulder. The pain will shoot all the ways down to her hand. It always hurts and then she will make dumb movement and it will just be stabbing pain. She had to have pain meds after moving her shoulder at Dr and then the x-ray. She always has neck pain. She thinks that she has carpal tunnel because her hands always feel numb. She is R handed. wanted to do an MRI but will do PT first. She has weakness in her hands. She can not sleep on her R side. She is a back sleeper but it hurts when she lays down at night. 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 Showering and doing her hair is so painful. She hears a snapping in her shoulder and she feels like she will drop things more. 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 Pt likes to guard due to apprehension and pain Balance/Special Test Scores Quick DASH Score: 75.0000 Goals Goal 1:: I HEP Goal Time Frame: 6-8 Weeks Goal 2:: Increase R shoulder pain free AROM (at the time of the eval: R shoulder flex 74 and L 16- R shoulder ABD 30 and L 175 R shoulder ER 27 and ER 60 R shoulder IR PSIS and L T6) Goal Time Frame: 6-8 Weeks Goal 3:: Be able to do her hair without having pain Goal Time Frame: 6-8 Weeks Rehabilitation Potential Rehabilitation Potential: Good Anticipated Interventions Patient/Client Instruction: Educate patient on: Condition and Plan of Care For the Purpose of:: To decrease pain, To decrease swelling/inflammation, To increase ROM, To improve nutrient delivery to tissue, To improve muscle performance and motor function, To improve ability to perform ADL's, To increase tolerance to activity/condition/position, To improve performance and independence with ADL's, To decrease level of supervision to perform tasks, To improve health of tissue, To decrease soft tissue restriction and To increase flexibility/ROM Therapeutic Exercise to Include: Strength training, Postural training, Flexibilty training, Neuromotor development, Passive ROM, Active ROM and Scapular Strength/Stabilization For the Purpose of:: To decrease pain, To increase ROM, To improve nutrient delivery to tissue, To increase oxygenation perfusion, To improve muscle performance and motor function, To improve ability to perform ADL's, To increase tolerance to activity/condition/position, To improve performance and independence with ADL's, To decrease level of supervision to perform tasks, To improve health of tissue, To decrease soft tissue restriction and To increase flexibility/ROM Manual Therapy Techniques to Include: Passive ROM For the Purpose of:: To decrease pain, To increase ROM, To improve nutrient delivery to tissue, To improve health of tissue, To decrease soft tissue restriction and To increase flexibility/ROM Cryotherapy (ice pack, ice massage): Yes Thermo therapy (hot pack): Yes For the Purpose of:: To decrease pain, To decrease swelling/inflammation, To increase ROM and To improve nutrient delivery to tissue Text: Thank you for the opportunity to evaluate your patient. For Medicare and Medicare HMO plans, please review the plan of care and approve it. It will need to be FAXED BACK to us at [phone] for Medicare purposes. For Medicare only, by signing this I certify the plan of care. Please let me know if there are questions or concerns regarding this plan of care. Physician Signature: Date:
[2024-02-17 15:47] LABS: Free T3 1.9 pg/mL (2.18-3.98); Thyroid Stim Hormone (TSH) 0.26 uIU/mL (0.358-3.74)
--- NOTE | 2024-02-24 09:53 | HP.PTDCSUM_ITS ---
Discharge Summary D/C summary: It has been my pleasure to treat ROBIN WELLS referred by Dr. Ermias Bartlett MD, with the diagnosis of shoulder pain for a total of 6 visit(s). Discharge Date: 02/24/24 Please see the following information for a summary of their discharge status. Subjective Subjective: She thinks that therapy is helping to keep her mobility in her arm but as far as the pain with reaching or using her arm, it is not helping. She reports that she had spasms in her arm all day yesterday. She is going to continue to stretch out her arm at home. Pain R shoulder pain: Pain Intensity (Out of 10): 5 Overall Improvement % Improvement: 60 Objective Objective/Function: R shoulder flex 94 and L 16- R shoulder ABD 51 and L 175 R shoulder ER 27 and ER 60 R shoulder IR PSIS and L T6) Improved flex/ ABD AROM but IR/ER remains the same. Pain with all movements. Goals Goal 1:: I HEP Goal Progress: Goal Met Goal 2:: Increase R shoulder pain free AROM (at the time of the eval: R shoulder flex 74 and L 16- R shoulder ABD 30 and L 175 R shoulder ER 27 and ER 60 R shoulder IR PSIS and L T6) Goal Progress: Progressing Goal 3:: Be able to do her hair without having pain Goal Progress: Not Progressing Plan Plan: DC PT back to for MRI D/C Information Discharge Comments: DC PT to HEP d/c sentence: If there are questions or concerns regarding this patient's physical therapy, sherice rollins feel free to call me at [phone]. Thank you for the referral of this patient. Sincerely, Elvi Haas, MPT Balance/Gait/Functional tests Balance/Special Test Scores Quick DASH Score: 65.9075 Improvement % Improvement: 60
--- NOTE | 2024-04-28 08:08 | HP.PTDCSUM ---
Discharge Summary D/C summary: It has been my pleasure to treat ROBIN WELLS referred by Dr. Ermias Bartlett MD, with the diagnosis of shoulder pain for a total of 6 visit(s). Discharge Date: 02/24/24 Please see the following information for a summary of their discharge status. Subjective Subjective: She thinks that therapy is helping to keep her mobility in her arm but as far as the pain with reaching or using her arm, it is not helping. She reports that she had spasms in her arm all day yesterday. She is going to continue to stretch out her arm at home. Pain R shoulder pain: Pain Intensity (Out of 10): 5 Overall Improvement % Improvement: 60 Objective Objective/Function: R shoulder flex 94 and L 16- R shoulder ABD 51 and L 175 R shoulder ER 27 and ER 60 R shoulder IR PSIS and L T6) Improved flex/ ABD AROM but IR/ER remains the same. Pain with all movements. Goals Goal 1:: I HEP Goal Progress: Goal Met Goal 2:: Increase R shoulder pain free AROM (at the time of the eval: R shoulder flex 74 and L 16- R shoulder ABD 30 and L 175 R shoulder ER 27 and ER 60 R shoulder IR PSIS and L T6) Goal Progress: Progressing Goal 3:: Be able to do her hair without having pain Goal Progress: Not Progressing Plan Plan: DC PT back to for MRI D/C Information Discharge Comments: DC PT to HEP d/c sentence: If there are questions or concerns regarding this patient's physical therapy, please feel free to call me at [phone]. Thank you for the referral of this patient. Sincerely, Elvi Haas, MPT Balance/Gait/Functional tests Balance/Special Test Scores Quick DASH Score: 65.9075 Improvement % Improvement: 60
== END 2024-02-24 19:00 | disposition home or self-care (01) ==
LOC: PT 09:30
PROVIDERS: PCP Family Medicine; Referring Provider Family Medicine; Visit Provider Family Medicine
DX: M25.511 Pain in right shoulder (principal); R20.2 Paresthesia of skin; E03.9 Hypothyroidism, unspecified
CPT/HCPCS: 36415; 84439; 84443; 84481; 97110; 97162; 97530

== ENCOUNTER → 2024-03-12 | Outpatient (CLI) | payer OTHER, SELFPAY ==
[2024-03-12 15:21] LABS: Erythrocyte Sedimentation Rate 3 mm/hr (0-30)
[2024-03-12 15:36] LABS: CRP < 2.90 mg/L (0.0-3.0)
== END | disposition home or self-care (01) ==
PROVIDERS: PCP Family Medicine; Referring Provider Orthopaedic Surgery; Visit Provider Orthopaedic Surgery
DX: S43.491A Other sprain of right shoulder joint, initial encounter (principal); M25.511 Pain in right shoulder
CPT/HCPCS: 36415; 85652; 86140

== ENCOUNTER → 2024-04-08 | Outpatient (CLI) | payer OTHER, SELFPAY ==
--- NOTE | 2024-04-08 12:36 | NEURO ---
NCS and/or EMG Patient Report Ordering Doctor: Evaristo Mckeon DATE OF SERVICE: 04/08/24 Shruthi presents with dull aching pain in the right shoulder with occasional shooting pain down the arm. She has numbness and tingling of the right hand. Electrodiagnostic findings: Right median motor nerve demonstrates normal distal latency, amplitude and conduction velocity. Right ulnar motor response is within normal limits, including conduction across the elbow. Normal right median and ulnar F?wave. Sensory responses are within normal limits. Needle EMG testing was performed the right upper limb. All muscles tested showed no evidence of denervation with normal motor unit action potentials. Electrodiagnostic impression: This is a normal electrodiagnostic study of the right upper limb. There is no electrodiagnostic evidence for peripheral neuropathy including carpal tunnel or cubital tunnel syndrome. There is no electrodiagnostic evidence for cervical radiculopathy. Multi Select Codes Neurology Neurology Interp Codes: 96096-06 Musc test done w/n test comp (interp) and 24992-41 Nrv cndj test 7-8 studies (interp)
== END | disposition home or self-care (01) ==
PROVIDERS: PCP Family Medicine; Referring Provider Orthopaedic Surgery; Visit Provider Orthopaedic Surgery
DX: R20.2 Paresthesia of skin (principal)
CPT/HCPCS: 95886; 95910